=== PATIENT | female | born 1995 | race Caucasian/White ===

== ENCOUNTER 2019-04-01 04:52 | Inpatient (IN) ==
[2019-04-01] MEDS ORDERED: ONDANSETRON 4 MG/2 ML VIAL IV PRN (05:22)
[2019-04-01] MEDS ORDERED: MEPERIDINE 50 MG/1 ML VIAL IV PRN (05:22)
[2019-04-01] MEDS ORDERED: OXYTOCIN/LR 20 UNIT/1,000 ML BAG IV SCH (05:30)
[2019-04-01] MEDS ORDERED: LACTATED RINGERS 1,000 ML IV SCH (05:30)
[2019-04-01 05:59] LABS: Basophils % 0.3 % (0.0-0.8); Eosinophils # 0.1 10*3/uL (0.0-0.87); Eosinophils % 0.6 % (0.00-10.9); Hematocrit 31.6 VOL% (35.7-47.0); Hemoglobin 10.2 GM/DL (12.0-16.0); Immature Granulocytes % 0.8 %; Immature Granulocytes Absolute 0.08 #; Lymphocytes # 1.7 10*3/uL (1.4-4.0); Lymphocytes % 16.8 % (21.3-54.2); Mean Corpuscular HGB Conc 32.3 GM/DL (32-36); Mean Corpuscular Volume 86.6 FL (87-102); Mean Platelet Volume 11.3 FL (9.6-12.0); Monocytes % 9.3 % (1.7-12.7); Neutrophils % 72.2 % (38.7-73.9); Platelet Count 174 T/CUMM (130-400); Red Blood Count 3.65 MC/CUMM (3.8-5.5); Red Cell Distribution Width 12.4 % (9.3-17.3); White Blood Count 9.9 T/CUMM (4-12)
[2019-04-01 06:20] LABS: Apearance,Urine CLEAR (Clear); Bilirubin,Urine Negative (Negative); Blood, Urine Negative (Negative); Glucose,Urine (UA) Negative (Negative); Ketones,Urine Negative (Negative); Nitrite,Urine Negative (Negative); Protein,Urine Negative; RBC,Urine <1 /HPF (0-4); Squamous Epithelial Cell,Urine Occasional /HPF (0-10); Urine Color Straw (Yellow); Urine Specific Gravity 1.006 (1.001-1.035); Urine Urobilinogen < 2.0 EU/DL (0.2-1.0); WBC,Urine 2 /HPF (0-6)
[2019-04-01 06:29] LABS: Alanine Aminotransferase 10 U/L (13-56); Albumin 2.4 G/DL (3.4-5.0); Alkaline Phosphatase 121 U/L (45-117); Aspartate Amino Transferase 12 U/L (0-37); Bilirubin,Total < 0.39 MG/DL (0.2-1.0); Blood Urea Nitrogen 5 MG/DL (7-18); Calcium 7.9 MG/DL (8.5-10.1); Glucose 78 MG/DL (74-106); Osmolality,Calculated 276.3 MOS/KG (273-304); Total Protein 5.3 G/DL (6.4-8.3)
[2019-04-01] MEDS ORDERED: NALOXONE 0.4 MG/ML VIAL IV PRN (08:52)
[2019-04-01] MEDS ORDERED: hydrOXYzine HCL 25 MG/1 ML VIAL IM PRN (08:52)
[2019-04-01] MEDS ORDERED: PROMETHAZINE 25 MG/1 ML VIAL IM PRN (08:52)
[2019-04-01] MEDS ORDERED: LACTATED RINGERS 1,000 ML IV ONE (08:52)
[2019-04-01] MEDS ORDERED: ePHEDrine 50 MG/ML AMP IV PRN (08:52)
[2019-04-01] MEDS ORDERED: CITRIC ACID/SODIUM CITRATE 30 ML UDCUP PO ONE (08:55)
[2019-04-01] MEDS ORDERED: FAMOTIDINE 20 MG/2 ML VIAL IV ONE (08:55)
[2019-04-01] MEDS ORDERED: fentaNYL 2 MCG/ROPIV 0.2% EPID 100 ML EPIDURAL SCH (09:00)
[2019-04-01 10:26] LABS: Amorphous Crystals,Urine Occasional /HPF (Few); Apearance,Urine CLEAR (Clear); Bilirubin,Urine Negative (Negative); Blood, Urine Negative (Negative); Glucose,Urine (UA) Negative (Negative); Ketones,Urine Negative (Negative); Nitrite,Urine Negative (Negative); Protein,Urine Negative; Squamous Epithelial Cell,Urine Occasional /HPF (0-10); Urine Color Colorless (Yellow); Urine Specific Gravity 1.004 (1.001-1.035); Urine Urobilinogen < 2.0 EU/DL (0.2-1.0)
[2019-04-01] MEDS ORDERED: METHYLERGONOVINE 0.2 MG/1 ML AMP ONE (11:35)
[2019-04-01] MEDS ORDERED: miSOPROStol 200 MCG TABLET ONE (11:36)
[2019-04-01 12:31] LABS: PCO2 Patient Temp Venous 44.1 MM HG; PH Patient Temp Venous 7.301; PO2 Patient Temp Venous 30.2 MM HG; Potassium Heart/CVR 5.5 MMOL/L (3.5-5.1); VBG Base Excess -4.9 MEQ/L (0-4); VBG HCO3 19.7 MEQ/L (24-28); VBG Oxygen Saturation 66.9 %; VBG PCO2 44.1 MMHG (41-51); VBG PH 7.301; VBG PO2 30.2 MMHG (17-40)
[2019-04-01] MEDS ORDERED: oxyCODONE/ACETAMINOPHEN 5-325 MG TABLET PO PRN ×2 (15:05)
[2019-04-01] MEDS ORDERED: DIPH/TET/ACEL PERT BOOSTER VACCINE 0.5 ML VIAL IM ONE (15:05)
[2019-04-01] MEDS ORDERED: LANOLIN 50% CREAM 0.3 OZ TUBE TOP PRN (15:05)
[2019-04-01] MEDS ORDERED: WITCH HAZEL PADS 100/JAR TOP PRN (15:05)
[2019-04-01] MEDS ORDERED: MEASLES/MUMPS/RUBELLA VACCINE 0.5 ML VIAL SUBCUT ONE (15:05)
[2019-04-01] MEDS ORDERED: RHO(D) IMMUNE GLOBULIN 300 MCG SYRINGE IM ONE (15:05)
[2019-04-01] MEDS ORDERED: HYDROCORTISONE 2.5% RECTAL CREAM 30 GM TUBE TOP PRN (15:05)
[2019-04-01] MEDS ORDERED: BISACODYL 10 MG SUPP RECTAL PRN (15:05)
[2019-04-01] MEDS ORDERED: BENZOCAINE 20%/MENTHOL 0.5% SPRAY 56 GM CAN TOP PRN (15:05)
[2019-04-01] MEDS ORDERED: ACETAMINOPHEN 325 MG TABLET PO PRN (15:05)
[2019-04-01] MEDS ORDERED: OXYTOCIN/LR 20 UNIT/1,000 ML BAG IV ONE (16:05)
[2019-04-01] MEDS: IBUPROFEN 800 MG TABLET PO PRN (17:09)
[2019-04-01] MEDS: DOCUSATE SODIUM 100 MG CAPSULE PO SCH (21:01)
[2019-04-02 06:19] LABS: Basophils % 0.2 % (0.0-0.8); Eosinophils # 0.1 10*3/uL (0.0-0.87); Eosinophils % 1.1 % (0.00-10.9); Hematocrit 31.7 VOL% (35.7-47.0); Hemoglobin 10.3 GM/DL (12.0-16.0); Immature Granulocytes % 0.7 %; Immature Granulocytes Absolute 0.07 #; Lymphocytes # 1.5 10*3/uL (1.4-4.0); Lymphocytes % 15.3 % (21.3-54.2); Mean Corpuscular HGB Conc 32.5 GM/DL (32-36); Mean Corpuscular Volume 85.7 FL (87-102); Mean Platelet Volume 11.6 FL (9.6-12.0); Monocytes % 7.7 % (1.7-12.7); Platelet Count 162 T/CUMM (130-400); Red Cell Distribution Width 12.4 % (9.3-17.3); White Blood Count 9.7 T/CUMM (4-12)
[2019-04-02] MEDS: IBUPROFEN 800 MG TABLET PO PRN ×2 (08:17→20:27)
[2019-04-02] MEDS: DOCUSATE SODIUM 100 MG CAPSULE PO SCH ×2 (08:18→20:16)
[2019-04-02] MEDS: POTASSIUM CHLORIDE 20 MEQ TABLET PO SCH (20:16)
[2019-04-03 08:35] VITALS: BP 156/87
[2019-04-03] MEDS: POTASSIUM CHLORIDE 20 MEQ TABLET PO SCH (08:40)
[2019-04-03] MEDS: DOCUSATE SODIUM 100 MG CAPSULE PO SCH (08:40)
[2019-04-03] MEDS: IBUPROFEN 800 MG TABLET PO PRN (10:17)
== END 2019-04-03 13:20 | disposition home or self-care (01) | DRG 560 ==
LOC: N.LDOUT 04:52 → N.LD 04:53 → N.OB 14:34
PROVIDERS: ADMIT Obstetrics & Gynecology; ATTEND Obstetrics & Gynecology